=== PATIENT | female | born 1955 | race Caucasian/White ===

== ENCOUNTER 2016-12-25 02:41 | Emergency (ER) | payer OTHER ==
[~2016-12-25] VITALS: Ht 157.5 cm; Wt 94.8 kg
[2016-12-25 03:31] LABS: HEMATOCRIT 38.4 % (36.0-46.0); MCH 30.6 PG (29.0-34.0); MCHC 33.3 G/DL (30.0-36.0); MCV 91.9 FL (83-99); MEAN PLAT.VOLUME 9.6 uM^3 (9.5-12.4); PLATELET COUNT 231 K/uL (156-360); RBC DIS.WIDTH-SD 42.6 % (39-53); RED BLOOD COUNT 4.18 M/uL (3.80-5.20)
[2016-12-25 03:39] LABS: CHLORIDE 104 mEq/L (99-109)
[2016-12-25 03:40] LABS: POTASSIUM 3.8 mEq/L (3.7-5.4); SODIUM 140 mEq/L (136-147)
[2016-12-25 03:41] LABS: GLUCOSE 136 mg/dL (70-99)
[2016-12-25 03:43] LABS: ANION GAP 10 MEQ/L (2-14)
[2016-12-25 03:44] LABS: ADD MIUA? YES; BILIRUBIN NEGATIVE; BLOOD LARGE; COLOR YELLOW ((YELLOW)); GLUCOSE (STRIP) NEGATIVE; KETONES NEGATIVE; LEUKOCYTES MODERATE; NITRITE NEGATIVE; PROTEIN (STRIP) 30; SPECIFIC GRAVITY 1.027 (1.000-1.030); UROBILINOGEN 0.2 MG/DL (0.2-1.0)
[2016-12-25 03:45] LABS: GFR ESTIMATE (CALCULATED) > 59 mL/min/
[2016-12-25 03:46] LABS: UREA NITROGEN (BUN) 16 mg/dL (9-23)
[2016-12-25 03:56] LABS: BACTERIA RARE /HPF; EPITHELIAL CELLS 1+ /HPF; MUCUS 4+ /LPF; RED BLOOD CELLS TNTC /HPF (0-5); UCUL ADDED? NO; WHITE BLOOD CELLS 30-40 /HPF (0-5)
[2016-12-25] MEDS ORDERED: FLOMAX0.4 MG PO (04:31)
[2016-12-25] MEDS ORDERED: ZOFRAN8 MG PO (04:31)
[2016-12-25] MEDS ORDERED: NORCO 5/3251 TABLET PO (04:31)
[2016-12-25 05:03] VITALS: BP 122/63
== END 2016-12-25 05:04 | disposition home or self-care (01) ==
LOC: EME 02:41
PROVIDERS: Emergency Medicine
DX: N20.1 Calculus of ureter (principal); R11.2 Nausea with vomiting, unspecified; R31.9 Hematuria, unspecified; K21.9 Gastro-esophageal reflux disease without esophagitis; E78.5 Hyperlipidemia, unspecified; Z96.659 Presence of unspecified artificial knee joint
CPT/HCPCS: 74176; 80048; 81003; 85027; 99281; 99284; J1885; J2405; J7030

== ENCOUNTER → 2017-01-04 | Outpatient (CLI) | payer OTHER ==
[~2017-01-04] MED LIST: FLOMAX0.4 MG PO; NORCO 5/3251 TABLET PO; ZOFRAN8 MG PO
== END | disposition home or self-care (01) ==
LOC: AMB 01-02 09:00
DX: N20.1 Calculus of ureter (principal); H91.3 Deaf nonspeaking, not elsewhere classified; E78.5 Hyperlipidemia, unspecified; K21.9 Gastro-esophageal reflux disease without esophagitis; Z96.659 Presence of unspecified artificial knee joint
CPT/HCPCS: 99213